=== PATIENT | male | born 1990 | race Caucasian/White ===

== ENCOUNTER → 2025-03-10 | Outpatient (CLI) | payer OTHER ==
[2025-03-10 14:50] LABS: PLATELET COUNT, AUTOMATED 311 10^3/uL (150-450)
[2025-03-10 14:57] LABS: ERYTHROCYTE SEDIMENTATION RATE 18 mm/hr (0-15)
[2025-03-10 15:26] LABS: ESTIMATED AVERAGE GLUCOSE 103.0 MG/DL (60-110)
[2025-03-10 15:28] LABS: ALT/SGPT 25 U/L (7.0-40); AST/SGOT 18 U/L (<34); C REACTIVE PROTEIN QUANTITATIV 0.83 MG/DL (<1.0); CALCIUM LEVEL 9.6 MG/DL (8.5-10.1); CARBON DIOXIDE LEVEL 27 MMOL/L (20-31); CHLORIDE LEVEL 104 MMOL/L (98-107); CHOLESTEROL LEVEL 178 MG/DL (<200); CHOLESTEROL RISK RATIO 4.46 (<5); CREATININE FOR GFR 0.90 MG/DL (0.70-1.30); GLOMERULAR FILTRATION RATE > 90.0 (>60); LDL CHOLESTEROL 116.1 MG/DL (<100); NON-HDL-C 138.1 MG/DL; POTASSIUM SERUM 4.1 MMOL/L (3.5-5.1); SODIUM LEVEL 141 MMOL/L (136-145); THYROID PEROXIDASE ANTIBODY 42 U/ML (<60.0); TOTAL 25(OH) VITAMIN D 22.2 NG/ML (20.0-100.0); TRIGLYCERIDES LEVEL 110 MG/DL (<150); VITAMIN B12 LEVEL 490 PG/ML (211-911)
[2025-03-10 15:29] LABS: FREE T4 1.24 NG/DL (0.89-1.76)
[2025-03-10 15:34] LABS: THYROXINE (T4) 7.0 UG/DL (4.5-10.9)
[2025-03-12 08:22] LABS: C-PEPTIDE 4.09 ng/mL (0.80-3.85)
[2025-03-13 09:37] LABS: INSULIN LEVEL 27.8 uIU/mL (<=18.4)
== END ==
LOC: M LAB 13:13
PROVIDERS: ATTEND Specialist
DX: E34.9 Endocrine disorder, unspecified (principal); E55.9 Vitamin D deficiency, unspecified; E53.8 Deficiency of other specified B group vitamins; R53.83 Other fatigue